=== PATIENT | male | born 1970 | race Caucasian/White ===

== ENCOUNTER 2023-05-22 20:01 | Emergency (ER) | payer MEDICAID, OTHER ==
[~2023-05-22] VITALS: Ht 167.6 cm; Wt 87.0 kg
[~2023-05-22 20:01] MED LIST: HYDR-523 PO; ONDA4TAB51 PO; TAMS0.4C31 PO
[2023-05-22 20:34] VITALS: BP 157/107; O2SAT 99
[2023-05-22 20:42] VITALS: PULSE 85; RESP 18
[2023-05-22] MEDS ORDERED: ACETAMINOPHEN 325MG TABLET PO ONE (21:00)
[2023-05-22] MEDS ORDERED: ACETAMINOPHEN 325MG TABLET ONE (21:14)
[2023-05-22 21:19] LABS: CLARITY URINE CLEAR (CLEAR); COLOR URINE YELLOW (YELLOW); GLUCOSE URINE NEGATIVE (NEGATIVE); KETONES URINE NEGATIVE (NEGATIVE); LEUKOCYTE ESTERASE URINE NEGATIVE (NEGATIVE); NITRITE URINE NEGATIVE (NEGATIVE); OCCULT BLOOD URINE 1+ (NEGATIVE); PH URINE 5.5 (4.5-8.0); PROTEIN URINE NEGATIVE (NEGATIVE); SPECIFIC GRAVITY URINE 1.028 (1.005-1.030)
[2023-05-22 21:21] LABS: SQUAMOUS EPITHELIAL CELL URINE NONE SEEN /lpf (RARE/1+); YEAST URINE NONE SEEN
[2023-05-22 21:24] VITALS: TEMP 98.2
[2023-05-22 21:39] LABS: BACTERIA URINE TRACE; WBC URINE 0-2 /hpf (0-2)
[2023-05-22] MEDS ORDERED: TAMS-11 MT (21:56)
[2023-05-22] MEDS ORDERED: POLY17PO3 MT (21:56)
[2023-05-22 22:34] LABS: BASOPHILS % 0.5 % (0.0-2.0); EOSINOPHILS % 1.5 % (0.0-5.0); HEMATOCRIT. 43.4 % (42.0-52.0); HEMOGLOBIN. 14.8 g/dL (14.0-18.0); LYMPHOCYTES % 29.7 % (20.0-50.0); MEAN CORPUSCULAR HEMOGLOBIN 28.8 pg (28.0-32.0); MEAN CORPUSCULAR HGB CONC 34.1 g/dL (31.0-37.0); MEAN CORPUSCULAR VOLUME 84.5 fL (80.0-94.0); MEAN PLATELET VOLUME 7.7 fl (7.4-10.4); MONOCYTES % 11.7 % (2.0-8.0); NEUTROPHILS % 56.6 % (40.0-76.0); PLATELET 247 x1000/uL (130-400); RED BLOOD CELL COUNT 5.14 mill/uL (4.7-6.1); RED CELL DISTRIBUTION WIDTH 14.1 % (11.6-14.6); WHITE BLOOD COUNT 7.7 x1000/uL (4.5-11.0)
[2023-05-22 22:41] LABS: CHLORIDE 105 mEq/L (98-107); INDEX HEMOLYSI 1 (1-3); INDEX ICTERIC 1 (1-4); INDEX LIPEMIC 1 (1-3); POTASSIUM 3.8 mEq/L (3.5-5.1); SODIUM 139 mEq/L (136-145)
[2023-05-22 22:49] LABS: ALANINE AMINOTRANSFERASE 39 IU/L (13-61); ALBUMIN 3.9 g/dL (3.4-5.0); ASPARTATE AMINOTRANSFERASE 25 IU/L (15-37); BILIRUBIN TOTAL 0.5 mg/dL (0.1-1.0); CALCIUM 9.1 mg/dL (8.5-10.1); CARBON DIOXIDE 30 mEq/L (21-32); CREATININE 1.1 mg/dL (0.6-1.3); GLUCOSE 90 mg/dL (70-105); PROTEIN TOTAL 7.9 g/dL (6.0-8.3); UREA NITROGEN BLOOD 17 mg/dL (7-21)
== END 2023-05-22 23:28 | disposition home or self-care (01) ==
LOC: ER 20:17
DX: N20.9 Urinary calculus, unspecified (principal); K59.00 Constipation, unspecified
CPT/HCPCS: 36415; 80053; 81003; 85025; 99283

== ENCOUNTER 2023-10-26 05:18 | Emergency (ER) | payer MEDICAID ==
[~2023-10-26] VITALS: Ht 175.3 cm; Wt 75.0 kg
[~2023-10-26 05:18] MED LIST changes: +POLY17PO3 MT; +TAMS-11 MT
[2023-10-26 05:24] VITALS: O2SAT 98
[2023-10-26 05:52] LABS: BASOPHILS % 0.5 % (0.0-2.0); EOSINOPHILS % 1.3 % (0.0-5.0); HEMATOCRIT. 44.7 % (42.0-52.0); LYMPHOCYTES % 42.4 % (20.0-50.0); MEAN CORPUSCULAR HEMOGLOBIN 29.1 pg (28.0-32.0); MEAN CORPUSCULAR HGB CONC 33.6 g/dL (31.0-37.0); MEAN CORPUSCULAR VOLUME 86.6 fL (80.0-94.0); MEAN PLATELET VOLUME 7.7 fl (7.4-10.4); MONOCYTES % 10.3 % (2.0-8.0); NEUTROPHILS % 45.5 % (40.0-76.0); PLATELET 237 x1000/uL (130-400); RED BLOOD CELL COUNT 5.16 mill/uL (4.7-6.1); RED CELL DISTRIBUTION WIDTH 13.7 % (11.6-14.6); WHITE BLOOD COUNT 6.6 x1000/uL (4.5-11.0)
[2023-10-26 06:05] LABS: ALANINE AMINOTRANSFERASE 22 IU/L (10-49); ALBUMIN 4.2 g/dL (3.2-4.8); ASPARTATE AMINOTRANSFERASE 22 IU/L (<34); BILIRUBIN TOTAL 0.6 mg/dL (0.1-1.0); CALCIUM 8.5 mg/dL (8.7-10.4); CARBON DIOXIDE 27 mEq/L (21-32); CHLORIDE 104 mEq/L (98-107); CREATININE 1.1 mg/dL (0.6-1.3); GLUCOSE 116 mg/dL (70-105); POTASSIUM 3.8 mEq/L (3.5-5.1); PROTEIN TOTAL 7.3 g/dL (6.0-8.3); SODIUM 136 mEq/L (136-145); TROPONIN I HIGH SENSITIVITY 4 ng/L (3.0-53); UREA NITROGEN BLOOD 16 mg/dL (9-23)
[2023-10-26 08:16] LABS: TROPONIN I HIGH SENSITIVITY 4 ng/L (3.0-53)
[2023-10-26 08:51] LABS: CLARITY URINE CLEAR (CLEAR); COLOR URINE YELLOW (YELLOW); GLUCOSE URINE NEGATIVE (NEGATIVE); KETONES URINE NEGATIVE (NEGATIVE); LEUKOCYTE ESTERASE URINE NEGATIVE (NEGATIVE); NITRITE URINE NEGATIVE (NEGATIVE); OCCULT BLOOD URINE NEGATIVE (NEGATIVE); PROTEIN URINE NEGATIVE (NEGATIVE); SPECIFIC GRAVITY URINE 1.012 (1.005-1.030)
[2023-10-26] MEDS ORDERED: GUAI600T44 MT (09:59)
[2023-10-26 10:01] VITALS: BP 134/91; PULSE 73; RESP 22; TEMP 98
== END 2023-10-26 10:02 | disposition home or self-care (01) ==
LOC: ER 05:31
DX: R55 Syncope and collapse (principal)
CPT/HCPCS: 36415; 71045; 80053; 81003; 83880; 84484; 85025; 85379; 93005; 99285